=== PATIENT | female | born 1995 | race Hispanic/Latino ===

== ENCOUNTER 2017-07-20 09:47 | Emergency (ER) | payer SELFPAY ==
[~2017-07-20] VITALS: Ht 167.6 cm; Wt 68.0 kg
[2017-07-20] MEDS ORDERED: PRENATABS RX T1 EACH PO (10:17)
[2017-07-20] MEDS ORDERED: PAIN RELIEF325 MG PO (10:18)
== END 2017-07-20 13:00 | disposition home or self-care (01) ==
LOC: ED 09:47
DX: O20.0 Threatened abortion (principal); Z79.899 Other long term (current) drug therapy; Z3A.01 Less than 8 weeks gestation of pregnancy
CPT/HCPCS: 76801; 76817; 81001; 84702; 84703; 86900; 86901; 99284